=== PATIENT | female | born 1950 | race Caucasian/White ===

== ENCOUNTER → 2016-10-11 | Outpatient (CLI) | payer MEDICARE ==
[2016-10-11 09:15] LABS: ALBUMIN 4.7 g/dL (3.4-5.0); ANION GAP 14.8 MEQ/L (3-15); CALCULATED IONIZED CALCIUM 3.9 mg/dL (3.8-4.6); TOTAL PROTEIN 7.8 g/dL (6.4-8.5)
== END ==
LOC: RAD 08:43
PROVIDERS: ATTEND Nurse Practitioner Family
DX: R91.8 Other nonspecific abnormal finding of lung field (principal); R73.03 Prediabetes
CPT/HCPCS: 36415; 71270; 80053; Q9967